=== PATIENT | male | born 1980 | race African-American/Black ===

== ENCOUNTER 2017-01-26 05:56 | Emergency (ER) | payer SELFPAY ==
[~2017-01-26] VITALS: Ht 185.4 cm; Wt 118.0 kg
[2017-01-26 07:31] VITALS: BP 115/79
== END 2017-01-26 09:19 | disposition left against medical advice (07) ==
LOC: ER 05:56
DX: R07.9 Chest pain, unspecified (principal); R10.13 Epigastric pain; R11.0 Nausea; Z53.21 Procedure and treatment not carried out due to patient leaving prior to being seen by health care provider
CPT/HCPCS: 93005